=== PATIENT | female | born 1990 | race Caucasian/White ===

== ENCOUNTER 2022-07-13 07:35 | Inpatient (IN) ==
[2022-07-13] MEDS ORDERED: OXYTOCIN 30 UNITS/500 ML BAG IV PRN ×3 (07:56→17:58)
[2022-07-13 08:21] LABS: Hematocrit (blood only) 36.3 % (34.1-44.9); Hemoglobin 12.1 g/dl (12.0-16.0); Mean Corpuscular Hemoglobin 29.7 pg (25.0-34.0); Mean Corpuscular Hgb Conc 33.3 g/dL (32.0-36.0); Mean Corpuscular Volume 89.2 fL (80.0-100.0); Mean Platelet Volume 12.2 fL (9.4-12.3); Platelet Count 200 K/uL (130-400); RDW Coefficient of Variation 12.2 % (11.5-14.5); RDW Standard Deviation 39.6 fL (36.4-46.3); Red Blood Count 4.07 M/uL (3.93-5.22); White Blood Count 9.91 K/ul (4.8-10.8)
--- NOTE | 2022-07-13 08:21 | History & Physical Report ---
Date of Service July 13, 2022 Assessment & Plan (1) Pyelectasis: (2) Abnormal ultrasound: (3) Gestational diabetes mellitus (GDM) affecting : (4) Encounter for supervision of normal in multigravida, antepartum: (5) conceived through in vitro fertilization: Plan Admit to L+D for eIOL Plan to start pitocin Patient desires epidural Covid test pending A+, GBS-, Rubella immune Fetus cat 1, +FHT moderate variability, no early or late decelerations Admission and Anticipated Discharge Date Admission Date: July 13, 2022 History of Present Illness Chief Complaint: eIOL Primary Care Provider: Twila Carver DO Leonardo is a 32 y/o female who is 40w2d GA and presents today for eIOL. This was conceived through IVF with her Mitra's egg and donor sperm. Complications during this include GDM, anemia, and bilateral pyelectasis & echogenic foci posterior to the stomach (referred to M, plan to follow up with pediatrics after delivery). Her GDM has been diet controlled, reports her fasting blood sugars have been between 76-95. Today denies any leakage of fluid or bleeding. OB Labs: Blood Type A Positive 12/22/21 Antibody Screen NEGATIVE 12/22/21 Hemoglobin 12.5 g/dl (12.0-16.0) 07/04/22 Hematocrit 37.2 % (34.1-44.9) 07/04/22 Mean Corpuscular Volume 92.1 fL (80-100) 12/22/21 Platelet Count 317 K/uL (130-400) 12/22/21 Rubella IgG Antibody Immune (Immune) 12/22/21 Rapid Plasma Reagin Nonreactive (Nonreactive) 12/22/21 Hepatitis B Surface Antigen Neg (Neg) 12/22/21 Hepatitis C Antibody Neg (Neg) 12/22/21 HIV (1&2) Ab and P24 Ag, 4th Gener Neg (Neg) 12/22/21 A Glucose 1 Hour 50 gm Load 204 mg/dl (70-130) H 01/19/22 OB Optional Labs: Chlamydia trachomatis RNA NOT DETECTED (NOT DETECTED) 12/22/21 Neisseria gonorrhoeae RNA NOT DETECTED (NOT DETECTED) 12/22/21 Labs Reviewed: Expanded carrier screening - no overlap b/w and donor sperm low risk panorama Allergies Allergy/AdvReac Type Severity Reaction Status Date / Time hydrocodone Allergy Unknown Itchiness Verified 07/13/22 08:27 Penicillins Allergy Unknown Vomiting Verified 07/13/22 08:27 Home Medications Medication Instructions Recorded Confirmed Type prenat.vits,nakul,[id number] 1 tab PO DAILY 12/18/21 07/13/22 History acetone (urine) test (Ketone Urine #50 ea 01/26/22 07/11/22 Rx Test strips) blood sugar diagnostic (OneTouch #150 ea 01/26/22 07/11/22 Rx Verio test strips) blood-glucose meter (OneTouch #1 ea 01/26/22 07/11/22 Rx Verio Flex Meter) lancets 33 gauge (OneTouch Delica #150 ea 01/26/22 07/11/22 Rx Plus Lancet) Patient History Medical History Anemia affecting Depression with anxiety History of HPV infection Ovarian cyst Varicella vaccine Yeast infection Surgical History History of tonsillectomy Status post colposcopy [place] teeth extracted Family History Grandmother (Paternal) Diabetes Crohn's disease Grandfather (Paternal) Diabetes Father Diabetes Other Depression Denies family history of Ovarian cancer Prostate cancer Breast cancer Lung cancer Colorectal cancer Cancer Hypertension Social History Smoking Status: Former smoker Tobacco Type: Cigarettes Age Started Using Tobacco: 16; Age Quit Using Tobacco: 25; Hx Alcohol Use: No Hx Substance Use: No Preferred Language: Urdu Communication Ability: Effective In School Suspension Aide Required: No Beliefs That Will Affect Care: None marital status: marital status details: Mitra Calabrese (29) [phone] Current Living Situation: Spouse and Family Current Living Situation Comment: and 2 children. 2 dogs and 1 cats( doing litter) current occupational status: employed current occupation: [employer] other: Same sex couple. 's egg and donor sperm. Feels Safe at Home: Yes Safety Concerns: Feels Safe At This Time Assistive Devices: None OB History -2 Previous pregnancies in 2006 and 2007, delivered vaginally for both pregnancies with no delivery complications -Hx of anemia in prior pregnancies FRONT OFFICE SPEC History -Last PAP in 09/2019 at [facility] [place]. -Hx of colposcopy with biopsy in 2013, normal PAP results since -Hx of HPV Review of Systems no fever, no chills and no body aches no cough and no wheezing no chest pain and no palpitations no nausea and no vomiting no dysuria Physical Exam Constitutional: WD/WN, vitals as above Respiratory: normal respiratory effort, lungs clear to auscultation Cardiovascular: RRR, no murmur, no edema No swelling of the lower extremities bilaterally Gastrointestinal (Abdomen): Inspection/Auscultation: abdomen normal to inspection Genitourinary: normal external appearance Manual OB Exam: + cervical dilation 3 cm (per Dr. Montemayor), + cervical effacement (75%) and + station -2 OB Exam Monitor Tracing: + external FHT monitor used, + external uterine monitor used, + category I and + normal FHT variability; no early decelerations present and no late decelerations present Results & Data ([facility]) Vital Signs (Past 12 Hours) Vital Signs Pulse BP 07/13/22 08:00 78 133/80 Supervising Physician Co-Signing Physician Notes Resident Physician Supervision Note: I interviewed and examined the patient. Discussed with Dr. Reed and agree with findings and plan as documented in the note. Any exceptions or clarifications are listed here: 32 y/o at 40 2/7 wga presents for eIOL. +FM; denies reg ctx, LOF, VB. PNI as above. SVE /-2. cat 1. Will start pit, epidural PRN Documented By: Chela Montemayor MD Resident Activity Tracking Resident Involvement: Resident Care Provided Care Provided: OB Delivery
[2022-07-13] MEDS: LACTATED RINGER'S 1,000 ML IV PRN ×2 (09:23→12:53)
[2022-07-13] MEDS ORDERED: LIDOCAINE 2%/EPINEPHRINE 1:200,000 20 ML SDV ONE (12:20)
[2022-07-13] MEDS ORDERED: SODIUM CHLORIDE 0.9% INJ 10 ML VIAL ONE (12:20)
[2022-07-13] MEDS ORDERED: fentaNYL citrate 100 MCG/2 ML VIAL ONE (12:20)
[2022-07-13] MEDS ORDERED: ePHEDrine sulfate 50 MG/ML AMP ONE (12:20)
[2022-07-13] MEDS ORDERED: BUPIVACAINE 0.25% 30 ML VIAL ONE (12:20)
[2022-07-13] MEDS ORDERED: fentaNYL 2MCG/ML ROPIVACAINE 1.25MG/ML 100 ML BAG EPI ONE (12:21)
[2022-07-13] MEDS ORDERED: NALOXONE HCL 0.4 MG/1 ML VIAL/CARP IV PRN (13:09)
[2022-07-13] MEDS ORDERED: diphenhydrAMINE 50 MG/ML VIAL IV PRN (13:09)
[2022-07-13] MEDS ORDERED: ePHEDrine sulfate 50 MG/ML AMP IV PRN (13:09)
[2022-07-13] MEDS ORDERED: NALOXONE HCL 1 MG in SODIUM CHLORIDE 0.9% 1000ML 1,000 ML IV PRN (13:09)
[2022-07-13] MEDS ORDERED: fentaNYL 2MCG/ML ROPIVACAINE 1.25MG/ML 100 ML BAG EPI PRN (13:09)
[2022-07-13] MEDS ORDERED: NALBUPHINE HCL INJ 10 MG/ML AMP IV PRN (13:09)
[2022-07-13] MEDS ORDERED: ONDANSETRON INJ 2 MG/ML 2 ML VIAL IV PRN (13:09)
--- NOTE | 2022-07-13 13:09 | Anesthesiology Consultation ---
Date of Service July 13, 2022 Assessment & Plan Chart Review Chart Review: Patient NOT seen in Pre Admission Testing and Acceptable Risk for Labor Epidural Consults Requested none ASA ASA2 Proposed Anesthesia Anesthesia Type: Labor Epidural Risk / Benefits Reviewed With: PT / POA / Parent / Guardian, Accepts Plan and Informed Consent Obtained History Height/Weight Height: 5 ft 6 in Weight: 74.843 kg Allergies Allergy/AdvReac Type Severity Reaction Status Date / Time hydrocodone Allergy Unknown Itchiness Verified 07/13/22 08:27 Penicillins Allergy Unknown Vomiting Verified 07/13/22 08:27 Medications Home Medications Medication Instructions Recorded Confirmed Last Taken prenat.vits,nakul,[id number] 1 tab PO DAILY 12/18/21 07/13/22 Unknown acetone (urine) test (Ketone Urine #50 ea 01/26/22 07/11/22 Unknown Test strips) blood sugar diagnostic (OneTouch #150 ea 01/26/22 07/11/22 Unknown Verio test strips) blood-glucose meter (OneTouch #1 ea 01/26/22 07/11/22 Unknown Verio Flex Meter) lancets 33 gauge (OneTouch Delica #150 ea 01/26/22 07/11/22 Unknown Plus Lancet) Active Medications Generic Name Dose Route Start Last Admin Trade Name Freq PRN Reason Stop Dose Admin Lactated Ringer's 1,000 mls @ 125 mls/hr 07/13/22 07:56 07/13/22 12:53 Lr IV 07/15/22 07:55 125 mls/hr .Q8H PRN Administration L&D Protocol Protocol Oxytocin 30 units in 500 mls @ 10 mls/hr 07/13/22 08:00 07/13/22 13:08 Pitocin IV 07/15/22 07:59 0.72 units/hr .Q24H PRN 12 mls/hr Labor Induction/Augmentation Titration Protocol 0.6 UNITS/HR Past Medical History Medical History Anemia affecting Depression with anxiety History of HPV infection Ovarian cyst Varicella vaccine Yeast infection Exercise / Class Metabolic Activity II 4-5 Yardwork/Stairs/Walk up hill Past Family History Family History Grandmother (Paternal) Diabetes Crohn's disease Grandfather (Paternal) Diabetes Father Diabetes Other Depression Denies family history of Ovarian cancer Prostate cancer Breast cancer Lung cancer Colorectal cancer Cancer Hypertension Past Surgical History Surgical History History of tonsillectomy Status post colposcopy [place] teeth extracted Past Anesthesia History No Hx of Anesthesia Complications and No Family Hx of Anesthesia Complications History of PONV No Hx of PONV and No Hx of Motion Sickness Social History Smoking Status: Former smoker Hx Alcohol Use: No Hx Substance Use: No Physical Exam Vital Signs Last Vital Signs Temp 36.7 C 07/13/22 08:29 Pulse 77 07/13/22 13:07 Resp 18 07/13/22 08:29 BP 101/63 07/13/22 13:07 Pulse Ox 100 07/13/22 13:04 ENMT Mouth: no dentition abnormality Thyromental Distance: > or= 3.5 Finger Breadths Mallampati Class: II Neck normal visual inspection Respiratory normal respiratory effort Auscultation: lungs clear to auscultation bilaterally Cardiovascular Rate/Rhythm: regular rate and regular rhythm Psychiatric Orientation: alert Testing Laboratory Results 07/13/22 08:06 07/13/22 09:37 POC Glucose 73
--- NOTE | 2022-07-13 17:00 | Delivery Summary ---
Vaginal Delivery Summary Date of Service July 13, 2022 Vaginal Delivery Summary Patient induced for postdates she was given IV Pitocin requested epidural she delivered pushing in occiput anterior position she delivered over second-degree tear baby's head was delivered fluid was clear mouth and then nares suctioned with bulb gentle traction on the baby live vigorous male cord clamped and cut cord gases obtained cord blood obtained placenta removed with gentle traction second-degree tear repaired with 3-0 Vicryl sponge and instrument counts correct estimated blood loss 200 mL
[2022-07-13 17:26] LABS: Base Excess Cord Venous Blood -2.1 mEq/L (-7.7-1.9); Cord Venous Blood HCO3 25 mmol/L (18.4-26.8); Cord Venous Blood PCO2 49 mmHg (30.4-57.2); Cord Venous Blood PO2 14 mmHg (14.1-43.3); Cord Venous Blood pH 7.31 (7.20-7.44); O2 Saturation Cord Venous Bld < 60.0 % (<68)
[2022-07-13] MEDS ORDERED: bisacodyL 10 MG SUPP PR PRN (17:58)
[2022-07-13] MEDS ORDERED: oxyCODONE/ACETAMINOPHEN 5mg/325mg TAB PO PRN (17:58)
[2022-07-13] MEDS ORDERED: ACETAMINOPHEN 325 MG TAB PO PRN (17:58)
[2022-07-13] MEDS ORDERED: HYDROCORTISONE ACETATE 25 MG SUPP PR PRN (17:58)
[2022-07-13] MEDS ORDERED: BENZOCAINE 20% AER SPR 82.5 GM CAN EXT PRN (17:58)
[2022-07-13] MEDS ORDERED: DIPHTHERIA/TETANUS/PERTUSSIS 0.5 ML SYR/VIAL IM ONE (17:58)
--- NOTE | 2022-07-13 19:48 | Anesthesia Procedure Note ---
Date of Service July 13, 2022 Anesthesia Post Epidural Note Vital Signs Vital Signs: Temp Pulse Resp BP Pulse Ox 37.1 C 80 18 119/66 100 07/13/22 19:00 07/13/22 19:02 07/13/22 19:00 07/13/22 19:02 07/13/22 17:03 Notes Mental Status: alert / awake / arousable Nausea / Vomiting: adequately controlled Pain: adequately controlled Airway Patency, RR, SpO2: stable & adequate BP & HR: stable & adequate Hydration State: stable & adequate Neuraxial Anesthesia: was administered and sensory block is resolving Anesthetic Complications: no major complications apparent and Pt Satisfied with anesthetic care Epidural: Removed without complications and With tip intact
[2022-07-13 20:21] LABS: Base Excess Cord Arterial Bld -3.9 mEq/L (-9-1.8); CO2 Cord Arterial Blood 65 mmHg (39.1-73.5); HCO3 Cord Arterial Blood 25 mmol/L (19.7-28.5); Oxygen Sat Cord Arterial Blood < 60.0 % (<60); PO2 Cord Arterial Blood 21 mmHg (4.1-31.7)
[2022-07-13] MEDS: DOCUSATE SODIUM 100 MG CAP PO SCH (21:06)
[2022-07-13] MEDS: IBUPROFEN 600 MG TAB PO PRN (21:06)
[2022-07-14] MEDS: IBUPROFEN 600 MG TAB PO PRN ×3 (02:37→14:39)
--- NOTE | 2022-07-14 06:49 | Obstetrical Progress Note ---
Date of Service <Latrice Reed DO - Last Filed: 07/14/22 07:41> July 14, 2022 Assessment & Plan <Latrice Reed DO - Last Filed: 07/14/22 07:41> (1) Pyelectasis: (2) Gestational diabetes mellitus (GDM) affecting : (3) Encounter for supervision of normal in multigravida, antepartum: (4) conceived through in vitro fertilization: Plan s/p PPD 1: -Vital signs reviewed and WNL, Tmax at 37.1 -Hemoglobin reviewed, 12.1 (07/13) -A+. GBS-, rubella immune -Encourage ambulation, monitor and treat pain PRN, monitor lochia -Return to regular diet <George Britt MD, FACOG - Last Filed: 07/14/22 07:49> (1) Pyelectasis: (2) Gestational diabetes mellitus (GDM) affecting : (3) Encounter for supervision of normal in multigravida, antepartum: (4) conceived through in vitro fertilization: Subjective <Latrice Reed DO - Last Filed: 07/14/22 07:41> Malissa is a 32 y/o female who is PPD #1 following delivery at 40 2/7 weeks. Her was complicated by GDM, anemia, bilateral pyelectasis, and conceived via IVF. Patient was seen and examined at bedside. She reports feeling well overall this morning. Some abdominal cramping at 5/10 pain but well managed on analgesics. Voiding without issue. Tolerating meals overnight and able to ambulate some. Has been passing gas. Has some persistent lochia with some improvement this morning. Currently breast feeding. Constitutional: no fever, no chills or no sweats Respiratory: no cough, no dyspnea or no wheezing Cardiovascular: no chest pain, no palpitations or no calf pain Breast: no breast pain Genitourinary (female): no dysuria Neurologic: no headache(s) Physical Exam <Latrice Reed DO - Last Filed: 07/14/22 07:41> Constitutional WD/WN, vitals as above no acute distress Respiratory no respiratory distress Auscultation: lungs clear to auscultation bilaterally; no rales, no rhonchi and no wheezes Cardiovascular RRR, no murmur, no edema Extremities: no calf tenderness and no edema Negative Iris's sign bilaterally. Gastrointestinal (Abdomen) Inspection/Auscultation: normal bowel sounds Genitourinary Uterine fundus firm, palpable below the umbilicus. Results & Data ([facility]) <Latrice Reed DO - Last Filed: 07/14/22 07:41> Vital Signs (Past 12 Hours) Vital Signs Temp Pulse Pulse Resp BP BP Pulse Ox 07/14/22 04:35 36.8 C 73 18 110/70 07/13/22 23:20 37 C 75 18 108/72 07/13/22 21:00 37 C 79 18 114/75 98 07/13/22 19:00 37.1 C 18 07/13/22 19:02 80 119/66 07/13/22 18:47 92 H 133/66 O2 Del Method 07/14/22 04:35 07/13/22 23:20 07/13/22 21:00 Room Air 07/13/22 19:00 07/13/22 19:02 07/13/22 18:47 <George Britt MD, FACOG - Last Filed: 07/14/22 07:49> Co-Signing Physician Notes Resident Physician Supervision Note: I was present with [Name of resident] during the history and exam. I discussed the case with the resident and agree with the findings and plan as documented in the note. Any exceptions or clarifications are listed here: [None] Documented By: George Britt MD, FACOG Resident Activity Tracking <Latrice Reed DO - Last Filed: 07/14/22 07:41> Resident Involvement: Resident Care Provided Care Provided: OB Delivery
[2022-07-14 06:57] LABS: Hematocrit (blood only) 34.8 % (34.1-44.9); Hemoglobin 11.7 g/dl (12.0-16.0); Mean Corpuscular Hemoglobin 30.2 pg (25.0-34.0); Mean Corpuscular Hgb Conc 33.6 g/dL (32.0-36.0); Mean Corpuscular Volume 89.7 fL (80.0-100.0); Mean Platelet Volume 12.5 fL (9.4-12.3); Platelet Count 143 K/uL (130-400); RDW Coefficient of Variation 12.2 % (11.5-14.5); Red Blood Count 3.88 M/uL (3.93-5.22); White Blood Count 10.28 K/ul (4.8-10.8)
[2022-07-14] MEDS ORDERED: PRENATAL VITAMIN 1 TAB PO SCH (08:00)
[2022-07-14] MEDS: DOCUSATE SODIUM 100 MG CAP PO SCH (08:20)
[2022-07-14] MEDS ORDERED: bisacodyL 5 MG TABEC PO SCH (20:00)
== END 2022-07-14 18:15 | disposition home or self-care (01) | DRG 807 ==
LOC: 4S1 07:35 → 4E2 20:40